=== PATIENT | female | born 1985 | race African-American/Black ===

== ENCOUNTER 2018-08-20 18:05 | Emergency (ER) | payer MEDICAID ==
[~2018-08-20] VITALS: Ht 167.6 cm; Wt 100.0 kg
[2018-08-20 18:09] VITALS: BP 115/61
== END 2018-08-20 22:12 | disposition left against medical advice (07) ==
LOC: ER 18:05
DX: R10.9 Unspecified abdominal pain (principal); Z53.21 Procedure and treatment not carried out due to patient leaving prior to being seen by health care provider